=== PATIENT | male | born 1990 | race Caucasian/White ===

== ENCOUNTER 2019-11-03 04:32 | Inpatient (IN) ==
[2019-11-03 05:22] LABS: Basophils # (auto) 0.03 K/uL (0-0.2); Basophils % (auto) 0.3 %; Eosinophils # (auto) 0.27 K/uL (0-0.5); Hematocrit (blood only) 46.4 % (42-52); Hemoglobin 16.2 g/dL (14.0-18.0); Immature Granulocytes # (auto) 0.04 K/uL (0.00-0.02); Immature Granulocytes % (auto) 0.5 %; Lymphocytes # (auto) 2.37 K/uL (1.2-3.4); Lymphocytes % (auto) 26.7 %; Mean Corpuscular Hemoglobin 33.1 pg (25-34); Mean Corpuscular Hgb Conc 34.9 g/dL (32-36); Mean Corpuscular Volume 94.7 fL (80-100); Mean Platelet Volume 11.2 fL (7.4-10.4); Monocytes # (auto) 0.61 K/uL (0.11-0.59); Monocytes % (auto) 6.9 %; Neutrophils # (auto) 5.55 K/uL (1.4-6.5); Neutrophils % (auto) 62.6 %; Platelet Count 228 K/uL (130-400); RDW Coefficient of Variation 13.4 % (11.5-14.5); RDW Standard Deviation 46.4 fL (36.4-46.3); White Blood Count 8.87 K/uL (4.8-10.8)
--- NOTE | 2019-11-03 05:30 | Emergency Department Note ---
Impression & Plan Seizure, Alcohol intoxication ED Provider Note NAME: GREGORIO JEAN AGE: 29 SEX: M ARRIVES VIA: Ambulance INFORMANT: Patient ED PROVIDER(S): Charlotte De Jesus DO CHIEF COMPLAINT: Seizure PLAN: Disposition: [facility] MEDICAL DECISION MAKING: This is a 29-year-old male patient who was found unresponsive by his girlfriend on a hotel room floor. EMS was called and upon their arrival, the patient was found to be having a tonic-clonic seizure. Apparently, the patient has no hist ory of seizures. Seizure precautions were taken here in the emergency department. The patient had a CAT scan of the brain which was unremarkable. Urine tox screen was positive for marijuana. Blood alcohol level was greater than 170. The patient's sister arrived at the bedside and states that he has no history of seizures but has been significantly sleep deprived over the past 4 days. There was a possible blood exposure to 1 of the police officers on scene with this patient as they were trying to establish an IV lock while the patient was seizing. The inpatient staff will need to obtain consent from this patient to obtain his source blood for testing. Triage Nursing notes reviewed and agree them. Additional history obtained from the patient's sister Prior medical records reviewed Vital Signs: reviewed and remarkable for no significant abnormalities Differential diagnosis: Drug abuse, alcohol intoxication, alcohol withdrawal seizure, epilepsy, intracranial mass ER treatment provided: Seizure precautions Diagnostics interpreted by me: Cardiac Monitoring: Normal sinus rhythm at a rate of 66. Laboratory studies: See below Imaging studies: As per stat rad CT head: No acute intracranial findings. Opacification and expansion of the right frontal sinus likely due to mucocele HPI: 29/M arrives for evaluation of seizure. This is a 29-year-old male patient with no previous history of seizures who presents to the emergency department after having an unresponsive episode and seizure activity. According to EMS, the patient was found unresponsive on the floor by his girlfriend. When EMS arrived, he was having a tonic-clonic seizure. The patient was given IM Ativan and the seizure stopped. The patient tells me that he does use alcohol and marijuana. He worked from 4 PM until midnight at [employer]. He started drinking alcohol while at work tonight and then a friend drove him to the [employer] motel. He was staying there tonight because he had a fight with his mother and could not stay with his mother at his grandmother's house. The patient denies ever having a seizure in the past. ROS: See above HPI for pertinent positives & negatives. A total of 10 systems reviewed and were otherwise negative. PAST MEDICAL HISTORY:Patient denies any past medical history PAST SURGICAL HISTORY:See Below FAMILY HISTORY:See Below SOCIAL HISTORY:Alcohol use, marijuana use, works at [employer] HOME MEDICATIONS:None ALLERGIES:None VITALS:See Below PHYSICAL EXAMINATION: HEENT: Head - normocephalic and atraumatic Pupils are equal, round, and reactive to light. Extraocular eye muscles are intact, and sclera are anicteric. Moderate scleral injection nose - moist nasal mucosa without discharge. Mouth - moist buccal mucosa. Oropharynx is nonerythematous and there is no tonsillar exudate or edema noted. Neck: Supple; no JVD, nuchal rigidity, cervical lymphadenopathy. Heart: Regular rate and rhythm. There is a normal S1 and S2 with no murmurs, clicks, or gallops appreciated. Lungs: Clear to auscultation bilaterally with no wheezes, rales, or rhonchi. Abdomen: Soft, completely nontender, nondistended, with good bowel sounds. There are no palpable pulsatile masses or hepatosplenomegaly. There is no guarding, rigidity, or rebound noted. Extremities: Abrasions about the left elbow Skin: warm and dry with good turgor and no rashes. ED COURSE: Times/Reassessments: 0435: The patient was evaluated in room C10. A complete history and physical was performed. Seizure precautions were taken. An order was placed for continuous cardiac monitoring. The patient was in a normal sinus rhythm at a rate of 94. 0500: Nursing staff alerted me that the patient disconnected all of his monitoring equipment and tore out his IV. I asked the patient why he did this and he had no adequate response. However, he was willing to have the IV lock replaced. 0515: IV lock was replaced 0545: Patient went for CT scan of the brain as described above. 0620: Patient is sleeping at this time. Department of Transportation paperwork was filled out because the patient did suffer a seizure. 0750: Nursing staff and I tried to wake the patient. The sister was at the bedside. He was very difficult to arouse. In fact, we could not get him to follow any specific commands or open his eyes. The sister was able to provide significant history stating that he is extremely sleep deprived over the past couple of days and this may have led to a seizure. I could not complete consent paperwork for source of blood on this patient as he was not fully awake. I asked the sister if she had concerns that this patient may have been depressed or wanting to harm himself. She stated that he did have a history of potential self-harm years ago. 0810: I discussed the case with the [facility] Hospitalist-Dr. Mariano and he will evaluate the patient for further care Charlotte De Jesus, DO Past Med/Surg History Social History Smoking Status: Current every day smoker Allergies Allergies Allergy/AdvReac Type Severity Reaction Status Date / Time No Known Allergies Allergy Unverified 11/03/19 04:57 Home Meds Home Medications Medication Instructions Recorded Confirmed No Known Home Medications 11/03/19 11/03/19 Results & Data (ED) Vital Signs Vital Signs - 24 hr 11/03/19 04:58 11/03/19 06:08 Temperature 37.0 C Temperature Source Oral Pulse Rate 94 H Pulse Rate [Right Finger] 66 Respiratory Rate 24 16 Respiratory Effort / Characteristics Non-Labored Spontaneous Non-Labored Spontaneous Respiratory Depth Normal Normal Respiratory Pattern Regular Blood Pressure 145/67 H Blood Pressure [Left Arm] 103/70 Blood Pressure Mean 93 Blood Pressure Mean [Left Arm] 81 Blood Pressure Position [Left Arm] Lying Pulse Oximetry 96 98 Oxygen Delivery Method Room Air Room Air Sepsis Action Taken by Nursing No Action Required Laboratory Data Result diagrams: 11/03/19 05:13 11/03/19 05:13 Lab Results 11/03/19 11/03/19 11/03/19 Range/Units 05:13 05:13 05:13 WBC 8.87 (4.8-10.8) K/uL RBC 4.90 (4.7-6.1) M/uL Hgb 16.2 (14.0-18.0) g/dL Hct 46.4 (42-52) % MCV 94.7 (80-100) fL MCH 33.1 (25-34) pg MCHC 34.9 (32-36) g/dL RDW Std Deviation 46.4 H (36.4-46.3) fL RDW Coeff of Briseida 13.4 (11.5-14.5) % Plt Count 228 (130-400) K/uL MPV 11.2 H (7.4-10.4) fL Immature Gran % (Auto) 0.5 % Neut % (Auto) 62.6 % Lymph % (Auto) 26.7 % [place] % (Auto) 6.9 % Eos % (Auto) 3.0 % Baso % (Auto) 0.3 % Neut # (Auto) 5.55 (1.4-6.5) K/uL Lymph # (Auto) 2.37 (1.2-3.4) K/uL [place] # (Auto) 0.61 H (0.11-0.59) K/uL Eos # (Auto) 0.27 (0-0.5) K/uL Baso # (Auto) 0.03 (0-0.2) K/uL Immature Gran # (Auto) 0.04 H (0.00-0.02) K/uL Sodium 144 (136-145) mmol/L Potassium 3.6 (3.5-5.1) mmol/L Chloride 115 H (98-107) mmol/L Carbon Dioxide 25 (21-32) mmol/L Anion Gap 4.0 (3-11) BUN 10 (7-18) mg/dl Creatinine 1.06 (0.6-1.4) mg/dl Est Cr Clr Drug Dosing 97.0 ml/min Est GFR ( Amer) 110.2 Est GFR (Non-Af Amer) 95.0 BUN/Creatinine Ratio 9.7 L (10-20) Glucose 89 (70-99) mg/dl Calcium 8.6 (8.5-10.1) mg/dl Magnesium 2.5 H (1.8-2.4) mg/dl Total Bilirubin 0.3 (0.2-1) mg/dl AST 21 (15-37) U/L ALT 28 (12-78) U/L Alkaline Phosphatase 69 (45-117) U/L Total Protein 7.7 (6.4-8.2) gm/dl Albumin 4.3 (3.4-5.0) gm/dl Globulin 3.4 (2.5-4.0) gm/dl Albumin/Globulin Ratio 1.3 (0.9-2) Urine Color Urine Appearance (Clear) Urine pH (4.5-7.5) Ur Specific [place] (1.000-1.030) Urine Protein (Negative) Urine Glucose (UA) (Negative) Urine Ketones (Negative) Urine Blood (Negative) Urine Nitrite (Negative) Urine Bilirubin (Negative) Urine Urobilinogen (Negative) Ur Leukocyte Esterase (Negative) Urine Opiates Screen (Neg) Ur Methadone, Qual (Neg) Urine Barbiturates (Neg) Ur Phencyclidine (PCP) (Neg) U Amphetamin/Meth Scrn (Neg) MDMA (Ecstasy) Screen (Neg) U Benzodiazepines Scrn (Neg) Ur Cocaine Metabolite (Neg) U Marijuana (THC) Screen (Neg) Ethyl Alcohol mg/dL 176.0 H (0-3) mg/dl 11/03/19 11/03/19 Range/Units 06:39 06:39 WBC (4.8-10.8) K/uL RBC (4.7-6.1) M/uL Hgb (14.0-18.0) g/dL Hct (42-52) % MCV (80-100) fL MCH (25-34) pg MCHC (32-36) g/dL RDW Std Deviation (36.4-46.3) fL RDW Coeff of Briseida (11.5-14.5) % Plt Count (130-400) K/uL MPV (7.4-10.4) fL Immature Gran % (Auto) % Neut % (Auto) % Lymph % (Auto) % [place] % (Auto) % Eos % (Auto) % Baso % (Auto) % Neut # (Auto) (1.4-6.5) K/uL Lymph # (Auto) (1.2-3.4) K/uL [place] # (Auto) (0.11-0.59) K/uL Eos # (Auto) (0-0.5) K/uL Baso # (Auto) (0-0.2) K/uL Immature Gran # (Auto) (0.00-0.02) K/uL Sodium (136-145) mmol/L Potassium (3.5-5.1) mmol/L Chloride (98-107) mmol/L Carbon Dioxide (21-32) mmol/L Anion Gap (3-11) BUN (7-18) mg/dl Creatinine (0.6-1.4) mg/dl Est Cr Clr Drug Dosing ml/min Est GFR ( Amer) Est GFR (Non-Af Amer) BUN/Creatinine Ratio (10-20) Glucose (70-99) mg/dl Calcium (8.5-10.1) mg/dl Magnesium (1.8-2.4) mg/dl Total Bilirubin (0.2-1) mg/dl AST (15-37) U/L ALT (12-78) U/L Alkaline Phosphatase (45-117) U/L Total Protein (6.4-8.2) gm/dl Albumin (3.4-5.0) gm/dl Globulin (2.5-4.0) gm/dl Albumin/Globulin Ratio (0.9-2) Urine Color Yellow Urine Appearance Clear (Clear) Urine pH 5.5 (4.5-7.5) Ur Specific [place] 1.015 (1.000-1.030) Urine Protein Negative (Negative) Urine Glucose (UA) Negative (Negative) Urine Ketones Negative (Negative) Urine Blood Negative (Negative) Urine Nitrite Negative (Negative) Urine Bilirubin Negative (Negative) Urine Urobilinogen Negative (Negative) Ur Leukocyte Esterase Negative (Negative) Urine Opiates Screen Neg (Neg) Ur Methadone, Qual Neg (Neg) Urine Barbiturates Neg (Neg) Ur Phencyclidine (PCP) Neg (Neg) U Amphetamin/Meth Scrn Neg (Neg) MDMA (Ecstasy) Screen Neg (Neg) U Benzodiazepines Scrn Neg (Neg) Ur Cocaine Metabolite Neg (Neg) U Marijuana (THC) Screen Pos H (Neg) Ethyl Alcohol mg/dL (0-3) mg/dl Discharge Plan Visit Data Chief Complaint: Seizure Stated Complaint: Seizure ED Provider: Charlotte De Jesus Discharge Problem: Seizure, Alcohol intoxication Forms Stand Alone Forms: My [facility] Prescriptions Prescriptions: No Action No Known Home Medications RF: 0 Discharge Problem: Alcohol intoxication Qualifiers: Complication of substance-induced condition: with unspecified complication Qualified Code(s): F10.929 - Alcohol use, unspecified with intoxication, unspecified
[2019-11-03 05:40] LABS: Albumin Level 4.3 gm/dl (3.4-5.0); BUN Creatinine Ratio 9.7 (10-20); Calcium 8.6 mg/dl (8.5-10.1); Est GFR (African American) 110.2; Magnesium 2.5 mg/dl (1.8-2.4); Potassium 3.6 mmol/L (3.5-5.1)
[2019-11-03 05:42] LABS: Albumin Globulin Ratio 1.3 (0.9-2); Bilirubin,Total 0.3 mg/dl (0.2-1); Globulin 3.4 gm/dl (2.5-4.0); Total Protein 7.7 gm/dl (6.4-8.2)
[2019-11-03 07:16] LABS: Appearance Urine Clear (Clear); Bilirubin Urine Negative (Negative); Blood Urine Negative (Negative); Color Urine Yellow; Glucose Urine UA Negative (Negative); Ketones Urine Negative (Negative); Leukocyte Esterase Urine Negative (Negative); Nitrite Urine Negative (Negative); Protein Urine Negative (Negative); Specific Gravity Urine 1.015 (1.000-1.030); Urobilinogen Urine Negative (Negative); pH Urine 5.5 (4.5-7.5)
[2019-11-03 07:38] LABS: Amphetamines+Metham, Urine Neg (Neg); Barbiturates, Urine Neg (Neg); Benzodiazepine, Urine Neg (Neg); Cocaine, Urine Neg (Neg); MDMA (Ecstacy), Urine Neg (Neg); Methadone, Urine Neg (Neg); Opiate, Urine Neg (Neg); Phencyclidine, Urine Neg (Neg)
--- NOTE | 2019-11-03 07:53 | CT Scan Report ---
CT head/brain wo con CLINICAL HISTORY: 29 years-old Male with headaches - new onset seizure. Acute headache with seizure TECHNIQUE: Multiple axial CT images of the head were obtained without contrast. A dose lowering tech nique was utilized adhering to the principles of ALARA. CT DOSE: 537.48 mGy.cm COMPARISON: None. FINDINGS: No acute intracranial hemorrhage, midline shift, intracranial mass, hydrocephalus, territorial ischem ia or abnormal extra-axial collection. The calvarium is intact. The mastoid air cells are clear. Mild mucosal thickening of the ethmoid air cells. Complete opacification with expansion of the right frontal sinus suggestive of probable mucoc ponce. Soft tissues are unremarkable. IMPRESSION: No acute intracranial abnormality. ACT 112: Negative or not required by law. The above report was generated using voice recognition software. It may contain grammatical, syntax o r spelling errors. Electronically signed by: Ang Brody M.D. 11/03/2019 7:52 AM
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
[2019-11-03] MEDS ORDERED: ONDANSETRON INJ 2 MG/ML 2 ML VIAL IV PRN (10:18)
[2019-11-03] MEDS ORDERED: POLYETHYLENE (MIRALAX) 17 GM PACK PO PRN (10:18)
[2019-11-03] MEDS ORDERED: LORazepam 2 MG/4 ML VIAL IV PRN (12:19)
--- NOTE | 2019-11-03 12:55 | Progress Note ---
Date of Service November 03, 2019 Assessment & Plan Admission and Anticipated Discharge Date Admission Date: November 03, 2019 Subjective chart reviewed, liaison attempted to assess patient on behalf of service and he remains sedated and irritable. Will reattempt. Unclear extent of drinking and past hx of SIB but no report of suicide attempt. Results & Data ([facility]) Vital Signs (Past 12 Hours) Vital Signs Temp Pulse Pulse Resp BP BP BP 11/03/19 10:22 36.6 C 80 16 133/83 11/03/19 10:02 76 11/03/19 09:30 63 19 11/03/19 09:01 63 18 11/03/19 09:00 61 19 118/66 11/03/19 08:30 72 18 11/03/19 08:01 78 18 11/03/19 08:00 63 18 112/70 11/03/19 07:44 91 H 30 H 95/59 L 11/03/19 07:30 75 18 11/03/19 07:01 74 21 11/03/19 07:00 76 22 107/62 11/03/19 06:30 78 20 11/03/19 06:08 66 16 103/70 11/03/19 06:06 98 H 18 11/03/19 06:05 90 20 103/70 11/03/19 05:30 108 H 18 11/03/19 05:18 88 17 11/03/19 04:58 37.0 C 94 H 24 145/67 H 11/03/19 04:38 97 H 18 11/03/19 04:36 94 H 29 H 145/67 H Pulse Ox 11/03/19 10:22 99 11/03/19 10:02 11/03/19 09:30 11/03/19 09:01 11/03/19 09:00 11/03/19 08:30 97 11/03/19 08:01 98 11/03/19 08:00 98 11/03/19 07:44 94 11/03/19 07:30 97 11/03/19 07:01 97 11/03/19 07:00 97 11/03/19 06:30 97 11/03/19 06:08 98 11/03/19 06:06 11/03/19 06:05 11/03/19 05:30 94 11/03/19 05:18 11/03/19 04:58 96 11/03/19 04:38 97 11/03/19 04:36 97
--- NOTE | 2019-11-03 14:35 | Electrocardiogram Report ---
Test Reason : Blood Pressure : / mmHG Vent. Rate : 079 BPM Atrial Rate : 079 BPM P-R Int : 124 ms QRS Dur : 090 ms QT Int : 372 ms P-R-T Axes : -10 072 033 degrees QTc Int : 426 ms Poor data quality, interpretation may be adversely affected Normal sinus rhythm Normal ECG No previous ECGs available Confirmed by Westley Conti ([id number]) on 11/03/2019 2:35:18 PM Referred By: Confirmed By:Westley Conti
--- NOTE | 2019-11-03 17:40 | Electroencephalogram ---
EEG Procedure Note Date of Service November 03, 2019 Start / End Times Start Time: 3:33 PM End Time: 3:53 PM Referring Physician Roscoe Mariano MD History New onset seizures in the context of alcohol intoxication, substance abuse and sleep deprivation Home Medication List Home Medications Medication Instructions Recorded Confirmed Type No Known Home Medications 11/03/19 11/03/19 History Description This is a 21 electrode EEG with a single channel dedicated to limited EKG. The electrodes were placed in accordance with the International 10-20 system. There is a well-developed posterior dominant rhythm of 10 Hz which is symmetrically distributed and attenuates with eye opening. There is a normal anterior to posterior organization. Photic stimulation is unremarkable. Hyperventilation is not performed. There is a minimal degree of admixed 5 Hz th eta activity. There is no focal or lateralized slowing. No epileptiform abnormalities. No vertex waves or other changes suggestive of sleep. Interpretation This is a normal-appearing awake/drowsy EEG. A normal EEG does not completely exclude a diagnosis of epilepsy. Further clinical correlation may be needed. [facility] EEG Procedure Codes Indication for Procedure (1) Seizure: Neurology Neurology: 10139 EEG include record awake & drowsy
[2019-11-03] MEDS: NICOTINE 21 MG/24 HR TDSY TD SCH (20:33)
[2019-11-04 11:05] LABS: Hematocrit (blood only) 46.8 % (42-52); Hemoglobin 16.2 g/dL (14.0-18.0); Mean Corpuscular Hemoglobin 32.8 pg (25-34); Mean Corpuscular Hgb Conc 34.6 g/dL (32-36); Mean Corpuscular Volume 94.7 fL (80-100); Mean Platelet Volume 11.1 fL (7.4-10.4); Platelet Count 208 K/uL (130-400); RDW Coefficient of Variation 13.4 % (11.5-14.5); RDW Standard Deviation 46.6 fL (36.4-46.3); Red Blood Count 4.94 M/uL (4.7-6.1); White Blood Count 9.49 K/uL (4.8-10.8)
--- NOTE | 2019-11-04 11:22 | Neurology Consultation ---
Date of Consultation November 04, 2019 Assessment & Plan (1) Seizure: Generalized tonic-clonic seizure related to sleep deprivation, alcohol intoxication, and marijuana use. No indication to start an anticonvulsant at this time. Patient's imaging and EEG are unremarkable. (Follow-up with radiol ogist's MRI interpretation as well) patient will need additional counseling regarding alcohol and drug use. Avoiding sleep deprivation will also be important. If patient were to present with another seizure would likely recommend starting an anticonvulsant at that time as well as a referral to an epilepsy specialist. No further immediate recommendations. History of Present Illness Reason for Consultation: New onset seizure Requesting Physician: Roscoe Mariano Attending Physician: Roscoe Mariano History of Present Illness The patient is a 29-year-old male who was found on a hotel room floor by his girlfriend unresponsive. EMS was summoned and the patient had a witnessed generalized tonic-clonic seizure. He is amnestic for the episode. He does complain of some generalized muscle soreness but otherwise did not sustain any injuries, no tongue bite. He had reportedly been sleep deprived for several days and had a blood alcohol level greater than 170 during his ED assessment. He had been smoking marijuana as well. He does not have a known history of seizure disorder. A CT of the head was negative for hemorrhage or acute process. An EEG completed yesterday was normal. Brain MRI completed this morning negative for stroke, hydrocephalus, parenchymal disease, or mesial temporal sclerosis per my review of the images. Radiologist interpretation pending. Imaging described in further detail below. The patient indicates that he feels fine this morning. Again, he is amnestic for his witnessed seizure. He denies a history of epilepsy or seizure disorder. Denies a history of head injury. No history of recent fever, chills, or other signs or symptoms suggestive of infection. He denies any specific or focal neurological symptoms such as vision loss, diplopia, change in speech or swallowing, vertigo, or focal weakness or sensory loss. He does report that his mother had seizures related to a head injury. Allergies Allergy/AdvReac Type Severity Reaction Status Date / Time No Known Allergies Allergy Unverified 11/03/19 04:57 Home Medications Home Medications Medication Instructions Recorded Confirmed Type No Known Home Medications 11/03/19 11/03/19 History Patient History Family History Mother Seizures Social History Preferred Language: [place] Citizen Beliefs That Will Affect Care: None Current Living Situation: Family Feels Safe at Home: Yes Safety Concerns: Feels Safe At This Time Smoking Status: Current every day smoker Tobacco Type: cigarettes ; Cigarettes Per Day: 20 ; Do You Dip or Chew Tobacco: No ; Hx Alcohol Use: Yes Alcohol type: beer Hx Substance Use: Yes substance use type: marijuana Last Used Substance: Unknown Review of Systems Constitutional: no fever and no chills Eyes: no blind spots and no diplopia Ear, Nose, Mouth, Throat: no tinnitus and no hearing loss Respiratory: no cough and no dyspnea Cardiovascular: no chest pain and no palpitations Gastrointestinal: no nausea and no vomiting Genitourinary: no urinary incontinence Musculoskeletal: no neck pain and no myalgia Integumentary: no rash and no lesions Neurologic: as per Subjective / HPI Psychiatric: no depression and no anxiety Hematologic / Lymphatic: no easy bleeding and no easy bruising Exam (Neuro) Constitutional: well developed and well nourished; no acute distress Eyes: normal visual waterman by confrontation, PERRL, normal accommodation and EOM intact bilaterally; no fundoscopic abnormality, no nystagmus and no papilledema Cardiovascular: Vessels: normal carotid upstroke; no carotid bruit Neurologic: Oriented to:: Person, Place and Time Memory: Short Term Intact and Remote Intact Attention: Span Intact and Concentration Intact Language: Naming Objects and Repeating Phrases Speech Fluency: negative Dysarthria Speech Aphasia: negative Aphasia Fund of Knowledge: Current Events, Past History and Vocabulary Cranial Nerves: Normal II (Visual waterman full to confrontation, visual acuity normal), III, IV, (Pupils equal round reactive to light and accommodation, eye movements normal), V (Facial sensation intact), VII (There is no facial droop or weakness), VIII (Hearing intact), IX, X (Palate elevates to midline), XI (Shoulder shrug intact) and XII (Tongue protrudes to midline) Motor Strength: Normal Lower Extremities and Normal Upper Extremities; negative Pronator Drift Motor Tone: Normal Lower Extremities and Normal Upper Extremities Muscle Bulk/Involuntary Movements: No Involuntary Movements; negative Muscle Atrophy Sensation: Light Touch Intact, Pain/Temperature Intact, Vibration Intact and Proprioception Intact Coordination: Normal; negative Limited Balance, Dysdiadochokinesia, Finger-Nose Abnormal and Heel-Hunt Abnormal Deep Tendon Reflexes: Rt Triceps: 2+, Lt Triceps: 2+, Rt Biceps: 2+, Lt Biceps: 2+, Rt Brachioradialis: 2+, Lt Brachioradialis: 2+, Rt Patellar: 2+, Lt Patellar: 2+, Rt Ankle: 2+ and Lt Ankle: 2+ Special Tests: negative Babinski Present Gait: Normal Station and Gait Results & Data ([facility]) Vital Signs (Past 12 Hours) Vital Signs Temp Pulse Pulse Resp BP Pulse Ox 11/04/19 07:43 36.5 C 73 16 127/76 98 11/04/19 07:00 58 L 11/04/19 02:48 36.7 C 67 18 116/70 96 11/03/19 23:25 36.7 C 75 19 143/81 H 98 11/03/19 23:03 80 Laboratory Results WBC 9.49, hemoglobin 16.2, hematocrit 46.8, platelet count 208, sodium 144, potassium 3.6, BUN 18, creatinine 1.06, glucose 89, calcium 8.6, magnesium 2.5, total CK 360, urine drug screen positive for marijuana, ethyl alcohol level [address] of the head negative for hemorrhage or acute process. There is opacification of the right frontal sinus. MRI of the brain negative for acute or subacute stroke, no hydrocephalus, no parenchymal disease, no mesial temporal sclerosis. I reviewed the images pertaining to this test. Radiology assessment pending. Electrocardiogram reveals a normal sinus rhythm, 71 bpm. An EEG completed yesterday revealed a normal background alpha rhythm, no epileptiform abnormalities. Coding Level of Care Code 67345 Office/OBS Consult Lvl 4 Diagnoses Seizure R56.9
[2019-11-04 11:39] LABS: Albumin Level 3.8 gm/dl (3.4-5.0); BUN Creatinine Ratio 14.6 (10-20); Calcium 8.8 mg/dl (8.5-10.1); Creatinine Clr Calc Pharmacy 86.4 ml/min; Est GFR (African American) 95.8; Est GFR (Non-African American) 82.6
[2019-11-04] MEDS: NICOTINE 21 MG/24 HR TDSY TD SCH (11:40)
[2019-11-04 11:41] LABS: Albumin Globulin Ratio 1.2 (0.9-2); Bilirubin,Total 0.6 mg/dl (0.2-1); Globulin 3.2 gm/dl (2.5-4.0)
--- NOTE | 2019-11-04 11:44 | Magnetic Resonance Report ---
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 There is no restricted diffusio n to suggest acute or subacute infarct. Midline structures including the corpus callosum, brainstem, optic chiasm, pituitary infundibulum, pituitary and pineal glands appear unremarkable on the sagittal T1 series. There is no cerebellar tonsillar herniation. Imaged cervical spine is unremarkable. There is no acute intracranial hemorrhage, midline shift, abnormal extra-axial collection, hydrocepha kavitha or intracranial mass. No significant T2/FLAIR signal abnormalities of the brain parenchyma. Bilat eral mesial temporal lobes appear normal. There is no evidence of mesial temporal sclerosis, jcakson mat ter heterotopia or cortical dysplasia. No acute seizure focus identified. Major vascular flow voids a ppear unremarkable. Moderate mucosal thickening of the ethmoid air cells. Mild mucosal thickening of the right maxillary sinus. Complete opacification and expansion of the right frontal sinus is suggest amanuel of a mucocele. IMPRESSION: 1. No acute intracranial abnormality. 2. Normal appearance of the mesial temporal lobes. No acute seizure focus identified. 3. Paranasal sinus disease as above. ACT 112: Negative or not required by law. The above report was generated using voice recognition software. It may contain grammatical, syntax o r spelling errors. Electronically signed by: Ang Brdoy M.D. 11/04/2019 11:43 AM
--- NOTE | 2019-11-04 11:56 | Psychiatric Consultation ---
Date of Consultation November 04, 2019 Impression / Recommendations Impression 29 yo male admit for seizure after binge drinking. He was initially guarded but is more cooperative today, likely minimizing his drinking. No evidence of suicidal ideation/intent and consistently denies. Plan: he is declining therapy and d&a counseling, states he may consider medication in the future if "I can't get it together", he is therefore only interested in f/u with PCP. Risk Factors Assessment Do You Have Access To A Gun?: No Psych History Identifying Data 29 yo single male, admit 11/02 following unresponsive episode with tonic clonic seizure. Consult is for "family disagreement". Chief Complaint "I was just sleep deprived". History of Present Illness States that lives with his mother as doesn't have immediate other options and drives from [facility] to [place] for work. Stressful time to change jobs and denies being a "regular drinker" though lately had also endorsed up to 1/5th a day of [place]. States that his mother argued with girlfriend and just dropped her "in the middle of no where" and neither of them had cell coverage to communicate so had to walk a significant distance looking for her which disrupted her sleep. He got a hotel locally as didn't want to drive all the way home after drinking at work and just getting girlfriend back to on license of [employer]. He denies any intent or plan to self harm. Denies manic symptoms interfering with sleep. Denies vegetative depression, just needs "some better way to deal with stress". States this is somewhat of a wake up call. He denies a history of regular binge drinking or Etoh withdrawal and states "overall I've been doing pretty good the past few years.". Cooperative with MRI and work up and amenable to a PCP but doesn't feel he needs therapy or f/u D&A counseling. Past Psychiatric History Previous Psych History: unspecified depressive disorder with [facility] Outpatient Services: none Previous Psych Admissions: 2013 in [place] Do You Have Access To A Gun?: No History of Previous Suicide Attempt: No Allergies Allergy/AdvReac Type Severity Reaction Status Date / Time No Known Allergies Allergy Unverified 11/03/19 04:57 Home Medications Home Medications Medication Instructions Recorded Confirmed Type No Known Home Medications 11/03/19 11/03/19 History Personal History Employment Status: [employer] Employed ([employer]) Marital Status: Single Beliefs That Will Affect Care: None Patient History Family History Mother Seizures Social History Preferred Language: Nepalese Beliefs That Will Affect Care: None Current Living Situation: Family Feels Safe at Home: Yes Safety Concerns: Feels Safe At This Time Smoking Status: Current every day smoker Tobacco Type: cigarettes ; Cigarettes Per Day: 20 ; Do You Dip or Chew Tobacco: No ; Hx Alcohol Use: Yes Alcohol type: beer Hx Substance Use: Yes substance use type: marijuana Last Used Substance: Unknown Physical Exam Psychiatric: Orientation: alert Apperance: appropriately groomed Eye Contact: good eye contact Motor Behavior: no abnormal motor movements Speech: normal rate/rhythm/volume of speech Affect: euthymic affect "I'm fine" Thought Process: goal directed thought process Thought Content: reality based without delusions Suicidal Thoughts: denies suicidal thoughts Homicidal Thoughts: denies homicidal thoughts Hallucinations: no auditory hallucinations and no visual hallucinations Cognition: language grossly intact Vital Signs (Past 24 Hours): Last Vital Signs Temp 36.5 C 11/04/19 07:43 Pulse 73 11/04/19 07:43 Resp 16 11/04/19 07:43 BP 127/76 11/04/19 07:43 Pulse Ox 98 11/04/19 07:43 Review of Systems All systems reviewed & are unremarkable except as noted in HPI & below Results & Data ([facility]) Medications Administered Miscellaneous (Remove Nicoderm Patch) 1 ea N/A [id number] [facility] Stop: 12/04/19 08:58 Last Admin: 11/04/19 09:30 Dose: 1 ea Documented by: [id number] Nicotine (Nicoderm Cq) 21 mg TD QAM [facility] Stop: 12/03/19 19:59 Last Admin: 11/04/19 11:40 Dose: 21 mg Documented by: [id number] Admin: 11/03/19 20:33 Dose: 21 mg Documented by: [id number] Coding Level of Care Code 42208 [facility] Intl Hosp Care Lvl 1
[2019-11-05 07:44] LABS: Marijuana Quant, GCMS Urine 239 ng/mL (<5)
== END 2019-11-04 16:00 | disposition home or self-care (01) | DRG 101 ==
LOC: ED 04:32 → 2W 08:48